=== PATIENT | male | born 1980 ===

== ENCOUNTER 2022-03-17 10:49 | Emergency (ER) | payer OTHER, SELFPAY ==
--- NOTE | 2022-03-17 11:41 | ED.GENADULT ---
HPI - General Adult General Chief complaint: General Medical Stated complaint: vomiting Time Seen by Provider: 03/17/22 14:27 Source: patient Mode of arrival: ambulatory History of Present Illness HPI narrative: HPI in ?course? section Related Data Allergies Allergy/AdvReac Type Severity Reaction Status Date / Time No Known Allergies Allergy Verified 03/17/22 11:43 Review of Systems Review of Systems: Pertinent positives and negatives as stated in HPI. [facility] Past Medical History Source: nursing notes reviewed Physical Exam ED Vital Signs: Vital Signs - 24 hr 03/17/22 11:42 Temperature 99.4 F Pulse Rate 118 H Respiratory Rate 20 Blood Pressure 128/76 Pulse Oximetry 97 Oxygen Delivery Method Room Air BMI result Body Mass Index 30.3 Physical exam in the ?course Section?. Course Course Course Narrative: 41-year-old male without significant past medical history presents with 2-3 days subjective fever, chills, sore throat, dry cough, nausea isolated episodes of vomiting and multiple episodes diarrhea. Patient reports he had ?possible seizure close course last night. Vital signs reviewed. GEN: NAD HEENT: NC/AT, Ears wnl, Throat wnl, no adenopathy PULM: CTAB, no wheeze, rhonchi, or rales CVS: ST, reg, no murmurs/JVD/lower ext swelling ABD: NT/ND EXT: warm, pink, dry Neuro, no deficits noted on gross exam - SARS, labs, Zofran/Tyelnol/Ibuprofen, PO hydration Review of all investigations positive for influenza, viral syndrome, and patient is out of the window for initiation of Tamiflu. Medications Administered Discontinued Medications Generic Name Dose Route Start Last Admin Trade Name Kathy PRN Reason Stop Dose Admin Acetaminophen 975 mg 03/17/22 11:43 03/17/22 11:48 Acetaminophen 325 Mg Tablet PO 03/17/22 11:44 975 mg ONCE ONE Administration Ibuprofen 400 mg 03/17/22 11:43 03/17/22 11:48 Ibuprofen 400 Mg Tablet PO 03/17/22 11:44 400 mg ONCE ONE Administration Ondansetron HCl 4 mg 03/17/22 11:44 03/17/22 11:48 Ondansetron Odt 4 Mg Tab.Rapdis TRANSLINGU 03/17/22 11:45 4 mg ONCE ONE Administration Discharge Plan Discharge Clinical Impression: Viral syndrome, Influenza A Patient Disposition: Home, Self-Care Instructions: Influenza (ED), Viral Syndrome (ED) Additional Instructions: 1. Recommend [id number] Tylenol/ibuprofen as needed for body aches, temperatures greater than 100.4. Get plenty of rest and drink plenty of water. 2. You have been diagnosed with influenza A. 3. Follow-up with primary care provider the next 1-2 days. Return to the ER for worsening symptoms. Stand Alone Forms: Work/School Release
[2022-03-17 11:42] VITALS: BP 128/76; PULSE 118; RESP 20; TEMP 37.4; O2SAT 97; BMI 30.3
[2022-03-17] MEDS: Ondansetron ODT 4 MG TAB.RAPDIS TRANSLINGU (11:48)
[2022-03-17] MEDS: Acetaminophen 325 MG TABLET 975 MG PO (11:48)
[2022-03-17] MEDS: Ibuprofen 400 MG TABLET PO (11:48)
[2022-03-17 12:14] LABS: MANUAL DIFF FLAG NO
[2022-03-17 12:15] LABS: Basophils Percent Auto 0.5 % (0-2); Eosinophils Percent Auto 0.1 % (0-4); Hemoglobin 13.7 g/dl (14.0-18.0); Imm Gran Abs Auto 0.04 X10*3/uL (0.00-0.03); Imm Gran Pct Auto 0.5 % (0.0-0.4); Lymphocytes Percent Auto 11.9 % (20-40); Mean Corpuscular HGB Conc 31.9 g/dl (31.0-36.0); Mean Corpuscular Hemoglobin 22.4 pg (27.0-33.0); Mean Corpuscular Volume 70.4 fL (80.0-98.0); Mean Platelet Volume 10.9 fL (9.4-12.4); Monocytes Absolute Auto 0.6 X10*3/uL (0.1-1.2); Monocytes Percent Auto 7.6 % (2-11); Neutrophils Absolute Auto 6.6 x10*3/uL (2.0-8.3); Neutrophils Percent Auto 79.4 % (45-73); Platelet Count 176 X10*3/uL (160-400); Red Blood Count 6.11 X10*6/uL (4.60-5.80); Red Cell Distribution Width 14.6 % (11.0-16.0); White Blood Count 8.3 X10*3/uL (4.8-10.8)
[2022-03-17 12:36] LABS: Alanine Aminotransferase 57 U/L (0-40); Albumin Level 4.4 g/dL (3.5-5.0); Alkaline Phosphatase 99 U/L (39-117); Anion Gap 12 (12-20); Aspartate Amino Transferase 37 U/L (5-37); Bilirubin Total 1.1 mg/dL (0.0-1.0); Blood Urea Nitrogen 13 mg/dL (9-16); Calcium 8.9 mg/dL (8.4-10.2); Carbon Dioxide 25 mmol/L (22-29); Chloride 101 mmol/L (96-108); Creatinine Clr Calc Pharmacy 99.2; Estimated Glomerular Filt Rate > 60; Glucose Random 98 mg/dL (60-115); Potassium 4.3 mmol/L (3.3-5.1); Sodium 134 mmol/L (135-145); Total Protein 7.3 g/dL (6.5-8.0)
[2022-03-17 14:02] LABS: Influenza A PCR POSITIVE (Negative); Influenza B PCR NEGATIVE (Negative); Resp Syncy Virus RNA Qual PCR NEGATIVE (Negative); SARS COV2 PCR INHOUSE NEGATIVE (Negative)
== END 2022-03-17 14:50 | disposition home or self-care (01) ==
LOC: HO.ED 14:50
PROVIDERS: Emergency Provider Student in an Organized Health Care Education/Training Program
DX: J10.1 Influenza due to other identified influenza virus with other respiratory manifestations (principal); Z79.899 Other long term (current) drug therapy; Z20.822 Contact with and (suspected) exposure to COVID-19
CPT/HCPCS: 0241U; 36415; 80053; 85025; 99283